=== PATIENT | female | born 1965 | race Caucasian/White ===

== ENCOUNTER 2016-08-04 12:56 | Emergency (ER) | payer OTHER ==
[2016-08-04] VITALS (8 sets, daily range): BP systolic 110–147; BP diastolic 57–86; PULSE 100–180; RESP 16–25; O2SAT 93–99
[~2016-08-04] VITALS: Ht 157.5 cm; Wt 146.8 kg
[2016-08-04] MEDS ORDERED: ADENOSINE IV SOLN 3 MG/ML 2 ML VIAL ONE (13:17)
[2016-08-04 13:50] LABS: AUTOMATED NEUTROPHIL # 6.6 TH/MM3 (1.8-7.7); BASOPHIL # 0.1 TH/MM3 (0-0.2); BASOPHIL % 0.6 % (0.0-2.0); EOSINOPHIL # 0.3 TH/MM3 (0-0.4); HEMATOCRIT 44.6 % (35.0-46.0); HEMO FLAGS DIFF FINAL; LYMPH % 16.4 % (9.0-44.0); LYMPHOCYTE # 1.5 TH/MM3 (1.0-4.8); MEAN CELL VOLUME 91.6 FL (80.0-100.0); MEAN CORPUSCULAR HEMOGLOBIN 30.1 PG (27.0-34.0); MEAN CORPUSCULAR HGB CONC 32.9 % (32.0-36.0); MONO % 6.4 % (0.0-8.0); NEUT % 73.6 % (16.0-70.0); PLATELET COUNT 191 TH/MM3 (150-450); RED BLOOD COUNT 4.87 MIL/MM3 (4.00-5.30); RED CELL DISTRIBUTION WIDTH 15.9 % (11.6-17.2)
--- NOTE | 2016-08-04 14:14 | RADRPT ---
EXAM DATE/TIME: 08/04/2016 14:01 [place] COMPARISON: No previous studies available for comparison. INDICATIONS : Rapid heart rate, short or breath MEDICAL HISTORY : Chronic obstructive pulmonary disease. SURGICAL HISTORY : None. ENCOUNTER: Initial ACUITY: 1 day PAIN SCORE: 0/10 LOCATION: Bilateral chest FINDINGS: A single view of the chest demonstrates the lungs to be symmetrically aerated without evidence of mas s, infiltrate or effusion. The cardiomediastinal contours are unremarkable. Osseous structures are intact. CONCLUSION: Normal examination. Michael Elder MD on August 04, 2016 at 14:13 Board Certified Radiologist. This report was verified electronically.
[2016-08-04 14:20] LABS: ANION GAP 4 MEQ/L (5-15)
[2016-08-04 14:21] LABS: BICARBONATE 30.8 MEQ/L (21.0-32.0); BLOOD UREA NITROGEN 13 MG/DL (7-18); CHLORIDE 100 MEQ/L (98-107); CREATINE KINASE 119 U/L (26-192); GLOMERULAR FILTRATION RATE 81 ML/MIN (>89); SODIUM (NA) 135 MEQ/L (136-145)
[2016-08-04 14:35] LABS: CKMB 0.6 NG/ML (0.5-3.6)
[2016-08-04] MEDS ORDERED: HUMALOG SQ (14:42)
[2016-08-04] MEDS ORDERED: D3 U5000 PO (14:42)
[2016-08-04] MEDS ORDERED: MAPA500C PO (14:42)
[2016-08-04] MEDS ORDERED: ATOR40TA16 PO (14:42)
[2016-08-04] MEDS ORDERED: ASPI1TAB69 PO (14:42)
[2016-08-04] MEDS ORDERED: DEXI60CA PO (14:42)
[2016-08-04] MEDS ORDERED: FLUT1INH7 INH (14:42)
[2016-08-04] MEDS ORDERED: ZOLO50TA PO (14:42)
[2016-08-04] MEDS ORDERED: LISI40TA PO (14:42)
[2016-08-04] MEDS ORDERED: CYAN100017 PO (14:42)
[2016-08-04] MEDS ORDERED: LEVEMIR SQ (14:42)
[2016-08-04] MEDS ORDERED: TORS20TA PO (14:42)
[2016-08-04] MEDS ORDERED: ALBUAER3 INH (14:42)
[2016-08-04] MEDS ORDERED: METF-382 PO (14:42)
--- NOTE | 2016-08-04 14:46 | PD ---
HPI Chief Complaint: Cardiac Complaint Time Seen by Provider: 13:16 Travel History International Travel<30 days: No Contact w/Intl Traveler<30days: No Traveled to known affect area: No History of Present Illness HPI 50-year-old woman who presents to the emergency department complaining of palpitations. She states her heart started fluttering beating very fast today at work. EMS was called the side of a heart rate in the 170s. She is a history of diabetes COPD and sleep apnea. She has had intermittent palpitations in the past. They never lasted more than 5 minutes or so. She had a Holter that was negative in the past. States she otherwise has been feeling generally well and healthy. History Past Medical History Narrative Medical Diabetes COPD, oxygen at night Sleep apnea Morbid obesity Tetanus Vaccination: Unknown Influenza Vaccination: No Menopausal: Yes Past Surgical History Surgical History: No Previous Surgery Social History Alcohol Use: No Tobacco Use: Yes (1ppd) Allergies-Medications (Allergen,Severity, Reaction): Coded Allergies: Penicillin (Verified Allergy, Unknown, rashes, 08/04/16) Review of Systems Except as stated in HPI: all other systems reviewed are Neg Physical Exam Narrative GENERAL: Morbidly obese 50-year-old woman, resting comfortably. No acute distress. SKIN: Warm and dry. HEAD: Atraumatic. Normocephalic. EYES: Pupils equal and round. No scleral icterus. No injection or drainage. ENT: No nasal bleeding or discharge. Mucous membranes pink and moist. NECK: Trachea midline. No JVD. CARDIOVASCULAR: Heart rate very rapid, regular. RESPIRATORY: No accessory muscle use. Clear to auscultation. Breath sounds equal bilaterally. GASTROINTESTINAL: Abdomen soft, non-tender, nondistended. Hepatic and splenic margins not palpable. MUSCULOSKELETAL: No obvious deformities. No edema. NEUROLOGICAL: Awake and alert. No obvious cranial nerve deficits. Motor grossly within normal limits. Normal speech. Data Data Last Documented VS Vital Signs Date Time Temp Pulse Resp B/P Pulse Ox O2 Delivery O2 Flow Rate FiO2 08/04/16 13:26 105 20 144/60 94 Nasal Cannula 08/04/16 13:14 2 Orders Electrocardiogram (08/04/16 13:03) Complete Blood Count With Diff (08/04/16 13:03) Basic Metabolic Panel (Bmp) (08/04/16 13:03) Ckmb (Isoenzyme) Profile (08/04/16 13:03) Troponin I (08/04/16 13:03) Chest, Single Ap (08/04/16 13:03) Iv Access Insert/Monitor (08/04/16 13:03) Ecg Monitoring (08/04/16 13:03) Oxygen Administration (08/04/16 13:03) Oximetry (08/04/16 13:03) Adenosine Inj (Adenocard Inj) (08/04/16 13:17) CKMB (08/04/16 13:15) CKMB% (08/04/16 13:15) Labs Laboratory Tests Test 08/04/16 13:15 White Blood Count 9.0 TH/MM3 Red Blood Count 4.87 MIL/MM3 Hemoglobin 14.7 GM/DL Hematocrit 44.6 % Mean Corpuscular Volume 91.6 FL Mean Corpuscular Hemoglobin 30.1 PG Mean Corpuscular Hemoglobin 32.9 % Concent Red Cell Distribution Width 15.9 % Platelet Count 191 TH/MM3 Mean Platelet Volume 8.2 FL Neutrophils (%) (Auto) 73.6 % Lymphocytes (%) (Auto) 16.4 % Monocytes (%) (Auto) 6.4 % Eosinophils (%) (Auto) 3.0 % Basophils (%) (Auto) 0.6 % Neutrophils # (Auto) 6.6 TH/MM3 Lymphocytes # (Auto) 1.5 TH/MM3 Monocytes # (Auto) 0.6 TH/MM3 Eosinophils # (Auto) 0.3 TH/MM3 Basophils # (Auto) 0.1 TH/MM3 CBC Comment DIFF FINAL Differential Comment Sodium Level 135 MEQ/L Potassium Level 5.0 MEQ/L Chloride Level 100 MEQ/L Carbon Dioxide Level 30.8 MEQ/L Anion Gap 4 MEQ/L Blood Urea Nitrogen 13 MG/DL Creatinine 0.75 MG/DL Estimat Glomerular Filtration 81 ML/MIN Rate Random Glucose 215 MG/DL Calcium Level 8.7 MG/DL Total Creatine Kinase 119 U/L Creatine Kinase MB 0.6 NG/ML Troponin I LESS THAN 0.02 NG/ML [facility] Medical Decision Making Medical Screen Exam Complete: Yes Emergency Medical Condition: Yes Interpretation(s) LABS: CBC is unremarkable CMP is unremarkable Troponin negative Chest x-ray normal Differential Diagnosis SVT, A. fib, arrhythmia, electrolyte abnormality, other Narrative Course 50-year-old presents the ED and SVT. She was cardioverted with 6 of adenosine without difficulty. Labs are unremarkable. We'll discharge recommend outpatient follow-up. Procedures Procedure Narrative Chemical cardioversion: 6 mg of adenosine was given rapid IV push followed by 20 mL normal saline bolus. Patient converted to sinus tachycardia. Diagnosis Primary Impression: SVT (supraventricular tachycardia) Additional Instructions: Follow-up with your primary doctor in the next 2-4 days. Return emergent arm for any persistent palpitations or elevated heart rate. Med/Other Pt SpecificInfo: No Change to Meds Disposition: 01 DISCHARGE HOME Condition: Stable Michael Grubbs MD Aug 04, 2016 14:46
--- NOTE | 2016-08-05 15:29 | EKG ---
Date Performed: 08/04/2016 Time Performed: 13:30:41 PTAGE: 50 years EKG: SINUS TACHYCARDIA LOW QRS VOLTAGE IN PRECORDIAL LEADS SVT is no longer present Compared to previous tracing ABNORMAL RHYTHM ECG NO PREVIOUS TRACING DOCTOR: Carmelita Yang Interpretating Date/Time 08/05/2016 15:27:39
--- NOTE | 2016-08-05 15:29 | EKG ---
Date Performed: 08/04/2016 Time Performed: 13:06:03 PTAGE: 50 years EKG: SUPRAVENTRICULAR TACHYCARDIA MARKED RIGHT AXIS DEVIATION LOW QRS VOLTAGE IN PRECORDIAL LEAD S MINIMAL ST DEPRESSION ABNORMAL QRS-T ANGLE ABNORMAL ECG NO PREVIOUS TRACING DOCTOR: Carmelita Yang Interpretating Date/Time 08/05/2016 15:27:19
== END 2016-08-04 16:04 | disposition home or self-care (01) ==
LOC: NEPA 12:56
DX: I47.1 Supraventricular tachycardia (principal)
CPT/HCPCS: 71010; 80048; 82550; 82552; 84484; 85025; 93005; 99285; J0153